=== PATIENT | female | born 1955 | race Caucasian/White ===

== ENCOUNTER 2021-11-19 19:55 | Emergency (ER) | payer MEDICARE, MEDICAID, SELFPAY ==
[2021-11-19] VITALS (9 sets, daily range): BP systolic 119–136; BP diastolic 63–91; PULSE 58–71; RESP 17–31; TEMP 36.9–37; O2SAT 90–98; BMI 20.1
--- NOTE | 2021-11-19 20:46 | DI.CT.S_ITS ---
PROCEDURE: CT HEAD/BRAIN WO CON INDICATIONS: vison change, left side inattentiveness, gait disturbance TECHNIQUE: Noncontrast 4.5 mm thick angled axial sections acquired from the foramen magnum to the vertex, with coronal and sagittal reformats. For radiation dose reduction, the following was used: automated exposure control, adjustment of mA and/or kV according to patient size. COMPARISON: None. FINDINGS: Image quality: Excellent. CSF spaces: Basal cisterns are patent. No extra-axial fluid collections. Ventricles are normal in size and shape. Brain: There is a multiloculated thick-walled cystic mass involving the right posterior parietal and occipital lobes measuring up to approximately 5.9 x 4.1 cm in transverse dimension by 5.0 cm in craniocaudal dimension. There is extensive associated vasogenic edema within the right parietal, occipital, and temporal lobes. No acute intracranial hemorrhage. There is minimal midline shift of 0.2 cm to the left. Skull and face: Calvarium and visualized facial bones are intact, without suspicious lesions. Sinuses: Visualized sinuses and mastoids are clear. IMPRESSION: 1. Multiloculated thick-walled cystic mass involving the right posterior parietal and occipital lobes with extensive associated vasogenic edema as described. 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 The differential also includes a cerebral abscess which is considered less likely but correlation is recommended clinically. Findings discussed with Dr. Canchola on 11/19/2021 at 9:11 p.m.. 2. No intracranial hemorrhage. There is minimal leftward midline shift of 0.2 cm. Dictated by: Leandro Conte M.D. on 11/19/2021 at 21:10 Approved by: Leandro Conte M.D. on 11/19/2021 at 21:16
--- NOTE | 2021-11-19 21:58 | ED_ITS ---
HPI - Neuro Symptoms/Deficit General Chief Complaint: Neuro Symptoms/Deficit Stated Complaint: Thinks detatched retena in left eye Time Seen by Provider: 11/19/21 21:12 Source: patient and family Mode of arrival: Ambulatory History of Present Illness HPI Narrative: Patient is a 66-year-old female who was sent to the emergency department by the clinic on [place] for concerns of left-sided retinal detachment. Patient states that for the past 10 days she has had balance issues. She states she is been running into things specifically at the grocery store. Has had a slight headache. Her ears have been full. She thought that maybe she had your wax buildup in her ears she went to the clinic on [address]. She does have cerumen impa ction however she mentioned to them that she was having balance issues and headaches they performed some sort of a visual test and thought that she had a left-sided retinal detachment. Prior to 10 days ago patient was at her normal state of health. On Anticoagulants: No Related Data Allergies Allergy/AdvReac Type Severity Reaction Status Date / Time No Known Drug Allergies Allergy Verified 11/19/21 23:06 Review of Systems Review of Systems ROS Unobtainable: All systems reviewed & are unremarkable except as noted in HPI and below Hematologic/Lymphatic On Anticoagulants: No Patient History Medical History Hypothyroid Social History Smoking Status: Current every day smoker Smoking Status: Current every day smoker alcohol intake frequency: 0-2 drinks per day Substance Use Type: marijuana Exam Initial Vital Signs Initial Vital Signs: Vital Signs Temperature 98.6 F 11/19/21 20:31 Pulse Rate 68 11/19/21 20:31 Respiratory Rate 17 11/19/21 20:31 Blood Pressure 136/91 H 11/19/21 20:31 Pulse Oximetry 98 11/19/21 20:31 Oxygen Delivery Method 11/19/21 20:31 Const General: cooperative, comfortable, well developed and No ill appearing HENMT Head: normal to inspection and normocephalic Ears: other (Cerumen impaction right ear Left tympanic membrane unremarkable) Face and sinus: normal facial exam Mouth: oral mucosae normal Eyes Pupils: PERRL EOM: EOM intact bilaterally Other: Patient has a left-sided visual field deficit consistent with a left homonymous hemianopia, Chest Chest: normal inspection of the chest Resp Effort & Inspection: normal respiratory effort Auscultation: clear to auscultation bilaterally Cardio Rate: regular rate Rhythm: regular rhythm GI Inspection: normal to inspection Skin General: no rashes or lesions noted Lesions: no lesions Neuro Speech: speech normal Gait: normal gait Sensory Exam: no sensory deficits noted Other: Cranial nerves intact except for the left visual field deficit Extrem General: normal to inspection and capillary refill normal Psych Appearance: grossly normal and well kempt Scores GCS [place] coma scale eye opening: Spontaneous [place] coma scale verbal response: Orientated [place] coma scale motor response: Obey commands [place] coma scale total score: 15 Course Orders Ordered: ED Orders 11/19/21 20:43 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 Stat 11/19/21 20:46 CT head/brain wo con Stat 11/19/21 22:13 COVID19 -Nasal RAPID/Pre-Proc Stat 11/19/21 22:20 Complete Blood Count AUTO DIFF Stat Comprehensive Metabolic Panel Stat Lipase Stat Discontinued Medications Dexamethasone (Dexamethasone 10 Mg/Ml Vial) 10 mg IV NOW ONE Stop: 11/19/21 22:55 Last Admin: 11/19/21 23:06 Dose: 10 mg Documented By: ARACELIS Vital Signs Vital signs: Vital Signs - 8 hr 11/19/21 20:31 11/19/21 22:02 11/19/21 21:57 Temperature 98.6 F 98.5 F Pulse Rate 68 69 69 Respiratory Rate 17 Blood Pressure 136/91 H 124/63 Pulse Oximetry 98 90 L Oxygen Delivery Method Room Air Room Air 11/19/21 22:00 11/19/21 22:22 11/19/21 22:22 Temperature Pulse Rate 67 64 Respiratory Rate 31 H 19 Blood Pressure 120/64 Pulse Oximetry 93 98 Oxygen Delivery Method 11/19/21 22:30 11/19/21 23:00 11/19/21 23:13 Temperature Pulse Rate 71 61 Respiratory Rate 28 H Blood Pressure 119/63 Pulse Oximetry 98 Oxygen Delivery Method 11/19/21 23:13 11/19/21 23:30 Temperature Pulse Rate 59 L 58 L Respiratory Rate 22 22 Blood Pressure Pulse Oximetry 97 96 Oxygen Delivery Method MDM - Neuro Symptoms/Deficit Lab Data Attestation: I reviewed the patient's lab results. Result diagrams: 11/19/21 22:20 11/19/21 22:20 Labs: Lab Results 11/19/21 11/19/21 11/19/21 Range/Units 22:13 22:20 22:20 WBC 8.9 (4.5-11.0) X10^3/uL RBC 4.17 (4.0-5.2) X10^6/uL Hgb 12.8 (12.0-16.0) g/dL Hct 38.5 (36-46) % MCV 92.4 (80-100) fL MCH 30.8 (26-34) PG MCHC 33.3 (30-36) % RDW 13.9 (11.6-14.8) % Plt Count 379 (150-400) X10^3/uL Neut % (Auto) 67.2 (50-75) % Lymph % (Auto) 19.9 L (25-40) % [place] % (Auto) 10.7 (3-14) % Eos % (Auto) 0.8 L (2-4) % Baso % (Auto) 1.4 (0-2) % Neut # (Auto) 6000 (4729-0554) /uL Lymph # (Auto) 1800 (1691-0251) /uL [place] # (Auto) 1000 H (0-900) /uL Eos # (Auto) 100 (0-450) /uL Baso # (Auto) 100 (0-100) /uL Sodium 138 (137-145) mmol/L Potassium 3.7 (3.4-5.1) mmol/L Chloride 104 (98-107) mmol/L Carbon Dioxide 29 (22-32) mmol/L BUN 15 (7-17) mg/dL Creatinine 0.60 (0.52-1.04) mg/dL Estimated GFR > 60 (>60) mL/min BUN/Creatinine Ratio 25.0 H (6-22) Glucose 133 H (80-110) mg/dL Calcium 9.1 (8.4-10.2) mg/dL Total Bilirubin 0.3 (0.2-1.3) mg/dL AST 21 (14-36) IU/L ALT 13 (<35) IU/L Alkaline Phosphatase 54 (38-126) U/L Total Protein 7.5 (6.3-8.2) g/dL Albumin 4.1 (3.5-5.0) g/dL Globulin 3.4 (1.7-4.1) g/dL Albumin/Globulin Ratio 1.2 (1.0-2.8) Lipase 96 (23-300) U/L SARS-CoV-2 (PCR) Negative (Negative) Urine Dip Bedside Urine Glucose Negative Bedside Urine Bilirubin - Negative Bedside Urine Ketone - Negative Urine Specific [place] 1.03 Bedside Urine Occult Blood - Negative Bedside Urine pH 6.0 Bedside Urine Protein - Negative Bedside Urine Urobilinogen - Negative Bedside Urine Nitrite - Negative Bedside Urine Leukocytes - Negative Esterase Imaging Data CT scan - head: Radiologist's Impression: [address] [address] [address] Scan Report Signed Patient: Lucrecia Mitchell MR#: [id number] : 1955 Acct:[id number] Age/Sex: 66 / F Date of Service: 11/19/21 Loc: ED Accession Number: [id number] ?? Procedure: CT head/brain wo con Ordering Provider: Cristo Hernandez D.O. PROCEDURE:? CT HEAD/BRAIN WO CON ? INDICATIONS:? vison change, left side inattentiveness, gait disturbance ? TECHNIQUE:? Noncontrast 4.5 mm thick angled axial sections acquired from the foramen magnum to the vertex, with coronal and sagittal reformats.? For radiation dose reduction, the following was used:? automated exposure control, adjustment of mA and/or kV according to patient size.? ? COMPARISON:? None. ? FINDINGS:? Image quality:? Excellent.? ? CSF spaces:? Basal cisterns are patent.? No extra-axial fluid collections.? Ventricles are normal in size and shape.? ? Brain:? There is a multiloculated thick-walled cystic mass involving the right posterior parietal and occipital lobes measuring up to approximately 5.9 x 4.1 cm in transverse dimension by 5.0 cm in craniocaudal dimension.? There is extensive associated vasogenic edema within the right parietal, occipital, and temporal lobes.? No acute intracranial hemorrhage.? There is minimal midline shift of 0.2 cm to the left. ? Skull and face:? Calvarium and visualized facial bones are intact, without s uspicious lesions.? ? Sinuses:? Visualized sinuses and mastoids are clear.? ? IMPRESSION:? ? 1. Multiloculated thick-walled cystic mass involving the right posterior parietal and occipital lobes with extensive associated vasogenic edema as described.? 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 The differential also includes a cerebral abscess which is considered less likely but correlation is recommended clinically.? Findings discussed with Dr. Canchola on 11/19/2021 at 9:11 p.m.. ? 2. No intracranial hemorrhage.? There is minimal leftward midline shift of 0.2 cm. ? Dictated by: Leandro Conte M.D. on 11/19/2021 at 21:10 ? ? Approved by: Leandro Conte M.D. on 11/19/2021 at 21:16?? [facility] Narrative Medical decision making narrative: Low concern for retinal detachment based on her physical exam. The CT scan findings of the cystic mass in the right occipital lobe explains her visual field deficit. I also suspect that this is why she is been having balance issues and also running into objects because she can not see anything in her left visual field. Patient was given Decadron for the swelling. Discussed the case with Dr. Esqueda with Neurosurgery at [facility] who accepts the patient in transfer. Discussed the need for transfer with the patient and family at bedside. Patient is stable for transfer. She expressed understanding and agreement. Discharge Plan Departure Patient Disposition: [facility] Clinical Impression: Brain mass
[2021-11-19 22:34] LABS: Add Manual Diff / Slide Review NO; Basophils Absolute Auto 100 /uL (0-100); Basophils Percent Auto 1.4 % (0-2); Eosinophils Absolute Auto 100 /uL (0-450); Eosinophils Percent Auto 0.8 % (2-4); Hematocrit 38.5 % (36-46); Hemoglobin 12.8 g/dL (12.0-16.0); Lymphocytes Absolute Auto 1800 /uL (1100-4500); Lymphocytes Percent Auto 19.9 % (25-40); Mean Corpuscular HGB Conc 33.3 % (30-36); Mean Corpuscular Hemoglobin 30.8 PG (26-34); Mean Corpuscular Volume 92.4 fL (80-100); Monocytes Absolute Auto 1000 /uL (0-900); Monocytes Percent Auto 10.7 % (3-14); Neutrophils Absolute Auto 6000 /uL (1500-7000); Neutrophils Percent Auto 67.2 % (50-75); Platelet Count 379 X10^3/uL (150-400); Red Blood Cell Count 4.17 X10^6/uL (4.0-5.2); Red Cell Distribution Width 13.9 % (11.6-14.8); White Blood Cell Count 8.9 X10^3/uL (4.5-11.0)
[2021-11-19 22:41] LABS: Alanine Aminotransferase 13 IU/L (<35); Albumin 4.1 g/dL (3.5-5.0); Albumin Globulin Ratio 1.2 (1.0-2.8); Alkaline Phosphatase 54 U/L (38-126); Aspartate Aminotransferase 21 IU/L (14-36); Bilirubin Total 0.3 mg/dL (0.2-1.3); Blood Urea Nitrogen 15 mg/dL (7-17); Calcium 9.1 mg/dL (8.4-10.2); Carbon Dioxide 29 mmol/L (22-32); Chloride 104 mmol/L (98-107); Estimated Glomerular Filt Rate > 60 mL/min (>60); Globulin 3.4 g/dL (1.7-4.1); Glucose 133 mg/dL (80-110); HEMOLYSIS < 15 (0-50); Lipase 96 U/L (23-300); Potassium 3.7 mmol/L (3.4-5.1); Sodium 138 mmol/L (137-145); Total Protein 7.5 g/dL (6.3-8.2)
[2021-11-19 22:54] LABS: COVID19 -Nasal RAPID Negative (Negative)
[2021-11-19] MEDS: DEXAMETHASONE 10 MG/ML VIAL IV (23:06)
== END 2021-11-19 23:45 | disposition short-term general hospital (02) ==
PROVIDERS: Emergency Provider Emergency Medicine
DX: G93.89 Other specified disorders of brain (principal); Z20.822 Contact with and (suspected) exposure to COVID-19
CPT/HCPCS: 36415; 70450; 80053; 81003; 83690; 85025; 87635; 96374; 99284; C9803; J1100